=== PATIENT | male | born 1950 | race Native Hawaiian/Other Pacific Islander ===

== ENCOUNTER 2016-06-07 09:57 | Inpatient (IN) | payer OTHER | END 2016-07-08 08:00 | disposition still patient (30) | LOC: PAVC 09:57 | PROVIDERS: ADMIT Internal Medicine | DX: Z51.89 Encounter for other specified aftercare (principal) ==

== ENCOUNTER 2016-07-08 09:00 | Inpatient (IN) | payer OTHER | END 2016-08-08 13:10 | disposition still patient (30) | LOC: PAVC 09:00 | PROVIDERS: ADMIT Internal Medicine | DX: Z51.89 Encounter for other specified aftercare (principal) ==

== ENCOUNTER 2016-08-08 13:16 | Inpatient (IN) | payer OTHER | END 2016-09-05 13:24 | disposition still patient (30) | LOC: PAVC 13:16 | PROVIDERS: ADMIT Internal Medicine | DX: Z51.89 Encounter for other specified aftercare (principal) ==

== ENCOUNTER 2016-09-05 13:52 | Inpatient (IN) | payer OTHER | END 2016-10-06 08:14 | disposition still patient (30) | LOC: PAVC 13:52 | PROVIDERS: ADMIT Internal Medicine | DX: Z51.89 Encounter for other specified aftercare (principal) ==

== ENCOUNTER 2016-09-07 05:03 | Outpatient (CLI) | payer OTHER | END 2016-09-07 19:44 | disposition home or self-care (01) | LOC: LAB 05:03 | DX: R97.20 Elevated prostate specific antigen [PSA] (principal) | CPT/HCPCS: 84153 ==

== ENCOUNTER 2016-09-14 09:19 | Outpatient (CLI) | payer OTHER | END 2016-09-14 19:15 | disposition home or self-care (01) | LOC: US 09:19 | DX: R31.21 Asymptomatic microscopic hematuria (principal) ==

== ENCOUNTER 2016-10-06 08:22 | Inpatient (IN) | payer OTHER | END 2016-11-05 11:01 | disposition still patient (30) | LOC: PAVC 08:22 | PROVIDERS: ADMIT Internal Medicine | DX: Z51.89 Encounter for other specified aftercare (principal) ==

== ENCOUNTER 2016-10-23 16:20 | Outpatient (CLI) | payer OTHER | END 2016-10-23 19:17 | disposition home or self-care (01) | LOC: CT 16:20 | DX: R31.9 Hematuria, unspecified (principal) ==

== ENCOUNTER 2016-11-03 14:43 | Outpatient (CLI) | payer OTHER | END 2016-11-03 19:08 | disposition home or self-care (01) | LOC: LAB 14:43 | DX: Z16.24 Resistance to multiple antibiotics (principal) | CPT/HCPCS: 87081 ==

== ENCOUNTER 2016-11-05 11:05 | Inpatient (IN) | payer OTHER | END 2016-12-06 11:12 | disposition still patient (30) | LOC: PAVC 11:05 | PROVIDERS: ADMIT Internal Medicine | DX: Z51.89 Encounter for other specified aftercare (principal) ==

== ENCOUNTER 2016-12-06 11:16 | Inpatient (IN) | payer OTHER | END 2017-01-05 16:12 | disposition still patient (30) | LOC: PAVC 11:16 | PROVIDERS: ADMIT Internal Medicine | DX: Z51.89 Encounter for other specified aftercare (principal) ==

== ENCOUNTER 2016-12-11 05:42 | Outpatient (CLI) | payer OTHER ==
[2016-12-11 08:44] LABS: PLATELET COUNT 102 K/uL (142-355)
[2016-12-11 08:49] LABS: POTASSIUM 4.1 mmol/L (3.6-5.2)
== END 2016-12-11 19:07 | disposition home or self-care (01) ==
LOC: LAB 05:42
PROVIDERS: Internal Medicine
DX: E78.4 Other hyperlipidemia (principal)
CPT/HCPCS: 80053; 80061; 85027

== ENCOUNTER 2017-01-05 16:17 | Inpatient (IN) | payer OTHER | END 2017-02-05 13:03 | disposition still patient (30) | LOC: PAVC 16:17 | PROVIDERS: ADMIT Internal Medicine | DX: Z51.89 Encounter for other specified aftercare (principal) ==

== ENCOUNTER 2017-02-05 14:25 | Inpatient (IN) | payer OTHER | END 2017-03-08 10:02 | disposition still patient (30) | LOC: PAVC 14:25 | PROVIDERS: ADMIT Internal Medicine | DX: Z51.89 Encounter for other specified aftercare (principal) ==

== ENCOUNTER 2017-03-08 10:06 | Inpatient (IN) | payer OTHER | END 2017-04-07 09:39 | disposition still patient (30) | LOC: PAVC 10:06 | PROVIDERS: ADMIT Internal Medicine | DX: Z51.89 Encounter for other specified aftercare (principal) ==

== ENCOUNTER 2017-04-07 09:43 | Inpatient (IN) | payer OTHER | END 2017-05-08 14:22 | disposition still patient (30) | LOC: PAVC 09:43 | PROVIDERS: ADMIT Internal Medicine ==

== ENCOUNTER 2017-04-09 18:34 | Outpatient (CLI) | payer OTHER | END 2017-04-09 19:35 | disposition home or self-care (01) | LOC: LAB 18:34 | DX: Z11.4 Encounter for screening for human immunodeficiency virus [HIV] (principal) | CPT/HCPCS: 36415; 86703; 86706; 86803; G0432 ==

== ENCOUNTER 2017-05-08 15:27 | Inpatient (IN) | payer OTHER | END 2017-06-07 10:33 | disposition still patient (30) | LOC: PAVC 15:27 | PROVIDERS: ADMIT Internal Medicine ==

== ENCOUNTER 2017-05-13 11:15 | Outpatient (CLI) | payer OTHER | END 2017-05-13 12:15 | disposition home or self-care (01) | LOC: LAB 11:15 | DX: R97.20 Elevated prostate specific antigen [PSA] (principal); N40.0 Benign prostatic hyperplasia without lower urinary tract symptoms | CPT/HCPCS: 84153 ==

== ENCOUNTER 2017-05-14 09:05 | Outpatient (CLI) | payer OTHER | END 2017-05-14 10:10 | disposition home or self-care (01) | LOC: US 09:05 | DX: R97.20 Elevated prostate specific antigen [PSA] (principal); N40.0 Benign prostatic hyperplasia without lower urinary tract symptoms ==

== ENCOUNTER 2017-06-07 11:09 | Inpatient (IN) | payer OTHER | END 2017-07-08 11:18 | disposition still patient (30) | LOC: PAVC 11:09 | PROVIDERS: ADMIT Internal Medicine ==

== ENCOUNTER 2017-06-11 06:13 | Outpatient (CLI) | payer OTHER ==
[2017-06-11 06:45] LABS: PLATELET COUNT 95 K/uL (142-355)
[2017-06-11 07:00] LABS: POTASSIUM 4.1 mmol/L (3.6-5.2)
== END 2017-06-11 07:15 | disposition home or self-care (01) ==
LOC: LAB 06:13
PROVIDERS: Internal Medicine
DX: Z79.899 Other long term (current) drug therapy (principal); Z51.81 Encounter for therapeutic drug level monitoring
CPT/HCPCS: 80053; 85027

== ENCOUNTER 2017-06-12 15:14 | Outpatient (CLI) | payer OTHER | END 2017-06-12 21:19 | disposition home or self-care (01) | LOC: LAB 15:14 | DX: R31.9 Hematuria, unspecified (principal) | CPT/HCPCS: 81000 ==

== ENCOUNTER 2017-06-27 15:48 | Outpatient (CLI) | payer OTHER | END 2017-06-27 19:44 | disposition home or self-care (01) | LOC: LAB 15:48 | DX: N39.0 Urinary tract infection, site not specified (principal) | CPT/HCPCS: 81000; 87077; 87086; 87088; 87185; 87186 ==

== ENCOUNTER 2017-07-08 11:24 | Inpatient (IN) | payer OTHER | END 2017-08-08 11:16 | disposition still patient (30) | LOC: PAVC 11:24 | PROVIDERS: ADMIT Internal Medicine ==

== ENCOUNTER 2017-07-15 14:43 | Outpatient (CLI) | payer OTHER | END 2017-07-15 20:43 | disposition home or self-care (01) | LOC: LAB 14:43 | DX: N39.0 Urinary tract infection, site not specified (principal) | CPT/HCPCS: 81000 ==

== ENCOUNTER 2017-08-08 11:22 | Inpatient (IN) | payer OTHER | END 2017-09-05 10:42 | disposition still patient (30) | LOC: PAVC 11:22 | PROVIDERS: ADMIT Internal Medicine ==

== ENCOUNTER 2017-09-05 11:11 | Inpatient (IN) | payer OTHER | END 2017-10-06 08:00 | disposition still patient (30) | LOC: PAVC 11:11 | PROVIDERS: ADMIT Internal Medicine ==

== ENCOUNTER 2017-10-03 20:01 | Outpatient (CLI) | payer OTHER | END 2017-10-03 21:00 | disposition home or self-care (01) | LOC: LABW 20:01 → LAB 20:01 → LABW 21:00 | DX: L98.8 Other specified disorders of the skin and subcutaneous tissue (principal) | CPT/HCPCS: 87070; 87077; 87185; 87186; 87205 ==

== ENCOUNTER 2017-10-06 09:00 | Inpatient (IN) | payer OTHER | END 2017-11-05 10:34 | disposition still patient (30) | LOC: PAVC 09:00 | PROVIDERS: ADMIT Internal Medicine ==

== ENCOUNTER 2017-11-05 11:08 | Inpatient (IN) | payer OTHER | END 2017-12-06 10:27 | disposition still patient (30) | LOC: PAVC 11:08 | PROVIDERS: ADMIT Internal Medicine ==

== ENCOUNTER 2017-12-06 10:31 | Inpatient (IN) | payer OTHER | END 2018-01-05 15:08 | disposition still patient (30) | LOC: PAVC 10:31 | PROVIDERS: ADMIT Internal Medicine ==

== ENCOUNTER 2017-12-09 06:00 | Outpatient (CLI) | payer OTHER ==
[2017-12-09 06:24] LABS: PLATELET COUNT 101 K/uL (142-355)
[2017-12-09 07:11] LABS: POTASSIUM 3.8 mmol/L (3.6-5.2)
== END 2017-12-09 22:00 | disposition home or self-care (01) ==
LOC: LAB 06:00
PROVIDERS: Internal Medicine
DX: E78.4 Other hyperlipidemia (principal); K21.9 Gastro-esophageal reflux disease without esophagitis
CPT/HCPCS: 80053; 80061; 85027

== ENCOUNTER 2018-01-01 04:30 | Outpatient (CLI) | payer OTHER | END 2018-01-01 23:28 | disposition home or self-care (01) | LOC: LAB 04:30 | DX: R82.90 Unspecified abnormal findings in urine (principal) | CPT/HCPCS: 81000 ==

== ENCOUNTER 2018-01-05 15:12 | Inpatient (IN) | payer OTHER | END 2018-02-05 08:00 | disposition still patient (30) | LOC: PAVC 15:12 | PROVIDERS: ADMIT Internal Medicine ==

== ENCOUNTER 2018-02-05 09:00 | Inpatient (IN) | payer OTHER | END 2018-03-08 11:14 | disposition still patient (30) | LOC: PAVC 09:00 | PROVIDERS: ADMIT Internal Medicine ==

== ENCOUNTER 2018-03-08 11:19 | Inpatient (IN) | payer OTHER | END 2018-04-07 15:07 | disposition still patient (30) | LOC: PAVC 11:19 | PROVIDERS: ADMIT Internal Medicine ==

== ENCOUNTER 2018-04-07 16:16 | Inpatient (IN) | payer OTHER | END 2018-05-08 10:42 | disposition still patient (30) | LOC: PAVC 16:16 | PROVIDERS: ADMIT Internal Medicine ==

== ENCOUNTER 2018-05-08 10:52 | Inpatient (IN) | payer OTHER | END 2018-06-07 07:08 | disposition still patient (30) | LOC: PAVC 10:52 | PROVIDERS: ADMIT Internal Medicine ==

== ENCOUNTER 2018-05-15 05:29 | Outpatient (CLI) | payer OTHER | END 2018-05-15 20:07 | disposition home or self-care (01) | LOC: LAB 05:29 | DX: Z12.5 Encounter for screening for malignant neoplasm of prostate (principal); R97.20 Elevated prostate specific antigen [PSA] | CPT/HCPCS: 36415; 84153 ==

== ENCOUNTER 2018-06-07 07:14 | Inpatient (IN) | payer OTHER | END 2018-07-08 09:40 | disposition still patient (30) | LOC: PAVC 07:14 | PROVIDERS: ADMIT Internal Medicine ==

== ENCOUNTER 2018-06-13 04:31 | Outpatient (CLI) | payer OTHER ==
[2018-06-13 06:03] LABS: PLATELET COUNT 99 K/uL (142-355)
[2018-06-13 06:17] LABS: POTASSIUM 3.8 mmol/L (3.6-5.2)
== END 2018-06-13 22:49 | disposition home or self-care (01) ==
LOC: LAB 04:31
PROVIDERS: Internal Medicine
DX: N40.1 Benign prostatic hyperplasia with lower urinary tract symptoms (principal); R03.0 Elevated blood-pressure reading, without diagnosis of hypertension; K21.9 Gastro-esophageal reflux disease without esophagitis; K21.0 Gastro-esophageal reflux disease with esophagitis
CPT/HCPCS: 80053; 85027

== ENCOUNTER 2018-07-08 10:12 | Inpatient (IN) | payer OTHER | END 2018-08-08 08:41 | disposition still patient (30) | LOC: PAVC 10:12 | PROVIDERS: ADMIT Internal Medicine ==

== ENCOUNTER 2018-08-08 09:14 | Inpatient (IN) | payer OTHER | END 2018-09-05 13:53 | disposition still patient (30) | LOC: PAVC 09:14 | PROVIDERS: ADMIT Internal Medicine ==

== ENCOUNTER 2018-09-05 14:04 | Inpatient (IN) | payer OTHER | END 2018-10-06 13:05 | disposition still patient (30) | LOC: PAVC 14:04 | PROVIDERS: ADMIT Internal Medicine ==

== ENCOUNTER 2018-10-06 13:11 | Inpatient (IN) | payer OTHER | END 2018-11-05 15:56 | disposition still patient (30) | LOC: PAVC 13:11 | PROVIDERS: ADMIT Internal Medicine ==

== ENCOUNTER 2018-10-27 13:00 | Outpatient (CLI) | payer OTHER | END 2018-10-27 19:41 | disposition home or self-care (01) | LOC: LAB 13:00 | DX: N39.0 Urinary tract infection, site not specified (principal) | CPT/HCPCS: 81000 ==

== ENCOUNTER 2018-11-05 16:27 | Inpatient (IN) | payer OTHER | END 2018-12-06 09:42 | disposition still patient (30) | LOC: PAVC 16:27 | PROVIDERS: ADMIT Internal Medicine | DX: Z51.89 Encounter for other specified aftercare (principal) ==

== ENCOUNTER 2018-11-06 14:11 | Outpatient (CLI) | payer OTHER | END 2018-11-06 19:55 | disposition home or self-care (01) | LOC: US 14:11 | DX: R31.0 Gross hematuria (principal) ==

== ENCOUNTER 2018-11-07 13:42 | Outpatient (CLI) | payer OTHER | END 2018-11-07 20:02 | disposition home or self-care (01) | LOC: RAD 13:42 | DX: N20.0 Calculus of kidney (principal) ==

== ENCOUNTER 2018-12-06 09:48 | Inpatient (IN) | payer OTHER | END 2019-01-05 13:50 | disposition still patient (30) | LOC: PAVC 09:48 | PROVIDERS: ADMIT Internal Medicine ==

== ENCOUNTER 2018-12-14 00:43 | Outpatient (CLI) | payer OTHER | END 2018-12-14 21:38 | disposition home or self-care (01) | LOC: LAB 00:43 | PROVIDERS: Internal Medicine | DX: E78.49 Other hyperlipidemia (principal); N40.1 Benign prostatic hyperplasia with lower urinary tract symptoms; K21.9 Gastro-esophageal reflux disease without esophagitis | CPT/HCPCS: 80061 ==

== ENCOUNTER 2018-12-18 10:44 | Outpatient (CLI) | payer OTHER ==
[2018-12-18 22:48] LABS: PLATELET COUNT 83 K/uL (142-355)
== END 2018-12-18 23:43 | disposition home or self-care (01) ==
LOC: LAB 10:44 → RESP 10:44
PROVIDERS: Internal Medicine
DX: Z01.818 Encounter for other preprocedural examination (principal); R68.89 Other general symptoms and signs; R79.89 Other specified abnormal findings of blood chemistry; N35.911 Unspecified urethral stricture, male, meatal; I10 Essential (primary) hypertension
CPT/HCPCS: 80053; 85027; 93005; 93306

== ENCOUNTER 2019-01-05 14:00 | Inpatient (IN) | payer OTHER | END 2019-02-05 12:34 | disposition still patient (30) | LOC: PAVC 14:00 | PROVIDERS: ADMIT Internal Medicine ==

== ENCOUNTER 2019-02-05 12:45 | Inpatient (IN) | payer OTHER | END 2019-03-08 17:19 | disposition still patient (30) | LOC: PAVC 12:45 | PROVIDERS: ADMIT Internal Medicine ==

== ENCOUNTER 2019-03-08 17:23 | Inpatient (IN) | payer OTHER | END 2019-04-07 13:00 | disposition still patient (30) | LOC: PAVC 17:23 | PROVIDERS: ADMIT Internal Medicine ==

== ENCOUNTER 2019-04-07 13:07 | Inpatient (IN) | payer OTHER | END 2019-05-08 12:20 | disposition still patient (30) | LOC: PAVC 13:07 | PROVIDERS: ADMIT Internal Medicine ==

== ENCOUNTER 2019-05-08 13:58 | Inpatient (IN) | payer OTHER | END 2019-06-07 08:00 | disposition still patient (30) | LOC: PAVC 13:58 | PROVIDERS: ADMIT Internal Medicine ==

== ENCOUNTER 2019-05-14 04:45 | Outpatient (CLI) | payer OTHER | END 2019-05-14 20:38 | disposition home or self-care (01) | LOC: LAB 04:45 | DX: R97.20 Elevated prostate specific antigen [PSA] (principal) | CPT/HCPCS: 84153 ==

== ENCOUNTER 2019-06-07 11:00 | Inpatient (IN) | payer OTHER | END 2019-07-08 09:32 | disposition still patient (30) | LOC: PAVC 11:00 | PROVIDERS: ADMIT Internal Medicine ==

== ENCOUNTER 2019-06-08 06:51 | Outpatient (CLI) | payer OTHER ==
[2019-06-08 08:19] LABS: PLATELET COUNT 87 K/uL (142-355)
[2019-06-08 08:56] LABS: POTASSIUM 3.7 mmol/L (3.6-5.2)
== END 2019-06-08 20:54 | disposition home or self-care (01) ==
LOC: LAB 06:51
PROVIDERS: Internal Medicine
DX: I10 Essential (primary) hypertension (principal); E78.00 Pure hypercholesterolemia, unspecified; R31.9 Hematuria, unspecified
CPT/HCPCS: 80053; 85027

== ENCOUNTER 2019-07-08 09:37 | Inpatient (IN) | payer OTHER | END 2019-08-08 10:48 | disposition still patient (30) | LOC: PAVC 09:37 | PROVIDERS: ADMIT Internal Medicine ==

== ENCOUNTER 2019-08-08 10:51 | Inpatient (IN) | payer OTHER | END 2019-09-06 14:13 | disposition still patient (30) | LOC: PAVC 10:51 | PROVIDERS: ADMIT Internal Medicine ==

== ENCOUNTER 2019-09-06 14:19 | Inpatient (IN) | payer OTHER | END 2019-10-07 11:51 | disposition still patient (30) | LOC: PAVC 14:19 | PROVIDERS: ADMIT Internal Medicine ==

== ENCOUNTER 2019-10-07 12:26 | Inpatient (IN) | payer OTHER ==
[2019-11-04] MEDS ORDERED: MULT VITAMI1 PO (18:50)
[2019-11-04] MEDS ORDERED: AMLODIPINE BESYLATE PO (18:51)
[2019-11-04] MEDS ORDERED: OMEPRAZOLE DR20 MG PO (18:53)
[2019-11-04] MEDS ORDERED: LISI20TA11 PO (18:54)
[2019-11-05] MEDS ORDERED: AZIT250T3 PO (07:05)
[2019-11-05] MEDS ORDERED: DOCU100C10 PO (07:09)
[2019-11-05] MEDS ORDERED: CETI10TA PO (07:09)
[2019-11-05] MEDS ORDERED: FIORICET/CODEIN1 CAP PO (07:13)
[2019-11-05] MEDS ORDERED: HYDR5TAB9 PO (07:16)
[2019-11-05] MEDS ORDERED: GUAIFENESIN DM PO (07:16)
[2019-11-05] MEDS ORDERED: ACET-206 PO (07:18)
== END 2019-11-06 11:24 | disposition still patient (30) ==
LOC: PAVC 12:26
PROVIDERS: ADMIT Internal Medicine

== ENCOUNTER 2019-11-02 09:31 | Outpatient (CLI) | payer OTHER | END 2019-11-02 19:35 | disposition home or self-care (01) | LOC: RAD 09:31 | DX: Z99.81 Dependence on supplemental oxygen (principal) ==

== ENCOUNTER 2019-11-04 15:12 | Inpatient (IN) | payer OTHER ==
[~2019-11-04] VITALS: Ht 193 cm; Wt 101.3 kg
[2019-11-04] VITALS (9 sets, daily range): BP systolic 97–130; BP diastolic 56–99; TEMP 97.9–99.5; Ht 193 cm; Wt 101.3 kg
[2019-11-04 16:25] LABS: PLATELET COUNT 165 K/uL (142-355)
[2019-11-04 16:32] LABS: POTASSIUM 3.3 mmol/L (3.6-5.2); SODIUM 148 mmol/L (136-145)
[2019-11-04] MEDS ORDERED: MULT VITAMI1 PO (18:50)
[2019-11-04] MEDS ORDERED: AMLODIPINE BESYLATE PO (18:51)
[2019-11-04] MEDS ORDERED: OMEPRAZOLE DR20 MG PO (18:53)
[2019-11-04] MEDS ORDERED: LISI20TA11 PO (18:54)
[2019-11-05] VITALS (21 sets, daily range): BP systolic 84–130; BP diastolic 59–80; TEMP 99.9–100.6
[2019-11-05 04:37] LABS: PLATELET COUNT 169 K/uL (142-355)
[2019-11-05 04:43] LABS: POTASSIUM 2.8 mmol/L (3.6-5.2)
[2019-11-05] MEDS ORDERED: AZIT250T3 PO (07:05)
[2019-11-05] MEDS ORDERED: DOCU100C10 PO (07:09)
[2019-11-05] MEDS ORDERED: CETI10TA PO (07:09)
[2019-11-05] MEDS ORDERED: FIORICET/CODEIN1 CAP PO (07:13)
[2019-11-05] MEDS ORDERED: HYDR5TAB9 PO (07:16)
[2019-11-05] MEDS ORDERED: GUAIFENESIN DM PO (07:16)
[2019-11-05] MEDS ORDERED: ACET-206 PO (07:18)
[2019-11-06] VITALS (19 sets, daily range): BP systolic 85–144; BP diastolic 41–81; TEMP 97.1–100.8
[2019-11-06 06:54] LABS: PLATELET COUNT 191 K/uL (142-355)
[2019-11-06 06:58] LABS: POTASSIUM 3.5 mmol/L (3.6-5.2)
== END 2019-11-06 19:09 | disposition expired | DRG 177 ==
LOC: ED 15:12 → ICU 17:00
PROVIDERS: Internal Medicine; ADMIT Emergency Medicine
DX: U07.1 COVID-19 (principal); J18.8 Other pneumonia, unspecified organism; N17.8 Other acute kidney failure; I95.89 Other hypotension; I10 Essential (primary) hypertension
CPT/HCPCS: 36600; 80053; 82550; 82553; 82805; 83605; 83735; 84484; 85027; 87040; 93005; 94760; 99285; J0132; J0456; J0696; J2060; J2270; J3480

== ENCOUNTER 2019-11-06 12:09 | Inpatient (IN) | payer OTHER ==
[~2019-11-06 12:09] MED LIST: ACET-206 PO; AMLODIPINE BESYLATE PO; AZIT250T3 PO; CETI10TA PO; DOCU100C10 PO; FIORICET/CODEIN1 CAP PO; GUAIFENESIN DM PO; HYDR5TAB9 PO; LISI20TA11 PO; MULT VITAMI1 PO; OMEPRAZOLE DR20 MG PO
== END 2019-11-06 19:09 | disposition expired ==
LOC: PAVC 12:09
PROVIDERS: ADMIT Internal Medicine